=== PATIENT | male | born 1955 | race Caucasian/White ===

== ENCOUNTER 2016-08-13 12:05 | Emergency (ER) | payer OTHER ==
[2016-08-13 12:46] LABS: ABSOLUTE BASOPHILS # (AUTO) 0.2 10^3/uL (0.0-0.2); ABSOLUTE EOSINOPHILS # (AUTO) 0.5 10^3/uL (0.0-0.6); ABSOLUTE LYMPHOCYTES (AUTO) 2.4 10^3/uL (0.5-4.7); ABSOLUTE NEUT (AUTO) 9.1 10^3/uL (1.7-8.2); BASOPHILS % (AUTO) 1.3 % (0-2); EOSINOPHILS % (AUTO) 3.9 % (0-6); HEMATOCRIT 41.4 % (37.9-51.0); HEMOGLOBIN 13.6 g/dL (13.5-17.0); HGB HCT DIFFERENCE -0.6; LYMPHOCYTES % (AUTO) 18.5 % (13-45); MEAN CORPUSCULAR HEMOGLOBIN 28.3 pg (27.0-33.4); MEAN CORPUSCULAR HGB CONC 32.9 g/dL (32.0-36.0); MEAN CORPUSCULAR VOLUME 86 fl (80-97); MONOCYTES % (AUTO) 7.6 % (3-13); RED BLOOD COUNT 4.81 10^6/uL (4.35-5.55); RED CELL DISTRIBUTION WIDTH 14.8 % (11.5-14.0); SEGMENTED NEUTROPHILS % (AUTO) 68.7 % (42-78); WHITE BLOOD COUNT 13.2 10^3/uL (4.0-10.5)
[2016-08-13] MEDS ORDERED: IPRATROPIUM/ALBUTEROL 0.5-2.5 MG/3 ML AMPUL NEB ONE (13:03)
[2016-08-13 13:08] LABS: PROTHROMBIN TIME 23.5 SEC (11.4-15.4)
[2016-08-13 13:09] LABS: PARTIAL THROMBOPLASTIN TIME 60.8 SEC (23.5-35.8)
[2016-08-13 13:10] LABS: ANION GAP 11 (5-19); BLOOD UREA NITROGEN 12 mg/dL (7-20); CALCIUM 9.3 mg/dL (8.4-10.2); CARBON DIOXIDE 32 mmol/L (22-30); CHLORIDE 97 mmol/L (98-107); GLUCOSE 128 mg/dL (75-110); SODIUM 139.7 mmol/L (137-145)
--- NOTE | 2016-08-13 13:24 | EKG REPORT ---
SEVERITY:- BORDERLINE ECG - SINUS RHYTHM BORDERLINE RIGHT AXIS DEVIATION : Confirmed by: Bernardo Hardin MD 13-Aug-2016 13:22:57
[2016-08-13] MEDS ORDERED: DOXYCYCLINE HYCLATE 100 MG TABLET PO ONE (13:28)
[2016-08-13] MEDS ORDERED: PREDNISONE 20 MG TABLET PO ONE (13:29)
[2016-08-13 14:03] VITALS: BP 111/61
[2016-08-13] MEDS ORDERED: ALBUTEROL SULFATE HFA (90 MCG/PUFF) 8 GM MDI (1 MDI/ER DISP) IH ONE (14:14)
--- NOTE | 2016-08-13 14:21 | ER Document Report ---
ED General - General Chief Complaint: Breathing Difficulty Stated Complaint: DIFFICULTY BREATHING - HPI Patient complains to provider of: shortness of breath cough Notes: Patient was seen at the [place] clinic today and transferred via ambulance due to a pulse ox of 98%. Patient was seen the [place] clinic today for shortness of breath. Patient has a history of atrial fibrillation and is on Coumadin for anticoagulation. Patient states cough has been productive. Patient states similar to when patient was diagnosed with bronchitis in the past no recent travel no recent antibiotics. Patient denies a history of smoking. Patient denies chest pain abdominal pain fevers chills patient otherwise looks nontoxic upon his evaluation - Related Data Allergies/Adverse Reactions: No Known Allergies Allergy (Unverified 05/01/11 13:05) Past Medical History - Social History Smoking Status: Former Smoker Family History: Reviewed & Not Pertinent Renal/ Medical History: Denies: Hx Peritoneal Dialysis - Immunizations Hx Diphtheria, Pertussis, Tetanus Vaccination: - unknown Review of Systems - Review of Systems Constitutional: No symptoms reported EENT: No symptoms reported Cardiovascular: No symptoms reported Respiratory: Cough, Short of breath Gastrointestinal: No symptoms reported Genitourinary: No symptoms reported Male Genitourinary: No symptoms reported Musculoskeletal: No symptoms reported Skin: No symptoms reported Hematologic/Lymphatic: No symptoms reported Neurological/Psychological: No symptoms reported -: Yes All other systems reviewed and negative Physical Exam - Vital signs Vitals: Temp Pulse Resp BP Pulse Ox 98.4 F 75 16 111/61 92 08/13/16 12:09 08/13/16 12:09 08/13/16 12:09 08/13/16 12:09 08/13/16 12:09 Interpretation: Normal - General General appearance: Appears well, Alert - HEENT Head: Normocephalic, Atraumatic Eyes: Normal Pupils: PERRL - Respiratory Respiratory status: No respiratory distress Chest status: Nontender Breath sounds: Normal Chest palpation: Normal - Cardiovascular Rhythm: Regular Heart sounds: Normal auscultation Murmur: No - Abdominal Inspection: Normal Distension: No distension Bowel sounds: Normal Tenderness: Nontender Organomegaly: No organomegaly - Back Back: Normal, Nontender - Extremities General upper extremity: Normal inspection, Nontender, Normal color, Normal ROM , Normal temperature General lower extremity: Normal inspection, Nontender, Normal color, Normal ROM , Normal temperature, Normal weight bearing. No: Bhavya's sign - Neurological Neuro grossly intact: Yes Cognition: Normal Orientation: AAOx4 [place] Coma Scale Eye Opening: Spontaneous Verena Coma Scale Verbal: Oriented [place] Coma Scale Motor: Obeys Commands [place] Coma Scale Total: 15 Speech: Normal Motor strength normal: LUE, RUE, LLE, RLE Sensory: Normal - Psychological Associated symptoms: Normal affect, Normal mood - Skin Skin Temperature: Warm Skin Moisture: Dry Skin Color: Normal Course - Re-evaluation Re-evalutation: 08/13/16 20:34 After breathing treatment patient was ambulated no signs of hypoxia. Patient will be treated as bronchitis. Chest x-ray showed linear density. Not consistent at this time with pneumonia however patient will recover with doxycycline due to his history of smoking more likely underlying COPD. No signs of sepsis or concerning etiologies patient discharged home - Vital Signs Vital signs: Temp Pulse Resp BP Pulse Ox 97.5 F 77 22 H 132/62 H 95 08/13/16 13:54 08/13/16 13:54 08/13/16 13:54 08/13/16 13:54 08/13/16 14:01 - Laboratory Result Diagrams: 08/13/16 12:35 08/13/16 12:35 Laboratory results interpreted by me: 08/13/16 08/13/16 08/13/16 12:35 12:35 12:35 WBC 13.2 H RDW 14.8 H Absolute Neutrophils 9.1 H PT 23.5 H APTT 60.8 H Chloride 97 L Carbon Dioxide 32 H Glucose 128 H Discharge - Discharge Clinical Impression: Bronchitis Condition: Good Disposition: HOME, SELF-CARE Instructions: Bronchitis With Bronchospasm (Wheezing) ([facility]) Additional Instructions: Please take medications as prescribed. Return to the ER symptoms worsen. Follow-up with your primary care physician in the next week to 2 weeks. Please use the inhaler that we gave you here in ER 2 puffs every 4 hours while awake for the next 5 days then as needed Prescriptions: Doxycycline Hyclate 100 mg PO BID #14 capsule Prednisone [Deltasone 20 mg Tablet] 3 tab PO DAILY 5 Days Forms: Return to Work
== END 2016-08-13 14:31 | disposition home or self-care (01) ==
LOC: ER 12:05
DX: J40 Bronchitis, not specified as acute or chronic (principal); R06.02 Shortness of breath; Z87.891 Personal history of nicotine dependence; I48.91 Unspecified atrial fibrillation
CPT/HCPCS: 93005; 94640; 99285; 36415; 85025; 85610; 85730; 80048; 71020; 93010; J7512; J3490; J7620

== ENCOUNTER 2018-10-16 18:04 | Emergency (ER) | payer OTHER ==
--- NOTE | 2018-10-16 18:32 | ER Document Report ---
ED Medical Screen (RME) - General Chief Complaint: Leg Swelling Stated Complaint: LEG SWELLING Time Seen by Provider: 10/16/18 18:25 TRAVEL OUTSIDE OF THE [place] IN LAST 30 DAYS: No - HPI Notes: 10/16/18 18:30 Patient is a 63-year-old male with a history of oxygen dependent COPD, hypertension, pacemaker, A. fib (on Coumadin), type 2 diabetes who presents to the emergency department complaining of left lower extremity swelling and redness that has been developing over the past 4 days. His explosive man believes he may have cellulitis and wanted him evaluated. Denies POSADA, fever, neck pain, URI, CP, new onset SOB, Abd pain. I have treated and performed a rapid initial assessment of this patient. A comprehensive ED assessment and evaluation of the patient, analysis of test results and completion of medical decision making process will be conducted by additional ED providers. PHYSICAL EXAMINATION: GENERAL: Well-appearing, well-nourished and in no acute distress. A&Ox4. Answers questions appropriately. LUNGS: Breath sounds clear to auscultation bilaterally and equal. No wheezes rales or rhonchi. HEART: Regular rate and rhythm without murmurs, rubs, gallops. Extremities: Rt LE: 1+ pitting edema. Lt LE 2-3+ pitting edema with erythema and warmth associated. + tenderness left. NEUROLOGICAL: Normal speech, normal gait. PSYCH: Normal mood, normal affect. - Related Data Allergies/Adverse Reactions: No Known Allergies Allergy (Verified 10/16/18 18:05) Past Medical History Renal/ Medical History: Denies: Hx Peritoneal Dialysis - Immunizations Hx Diphtheria, Pertussis, Tetanus Vaccination: - unknown
[2018-10-16 19:19] LABS: ABSOLUTE BASOPHILS # (AUTO) 0.1 10^3/uL (0.0-0.2); ABSOLUTE EOSINOPHILS # (AUTO) 0.4 10^3/uL (0.0-0.6); ABSOLUTE LYMPHOCYTES (AUTO) 2.4 10^3/uL (0.5-4.7); ABSOLUTE MONOCYTES (AUTO) 0.8 10^3/uL (0.1-1.4); ABSOLUTE NEUT (AUTO) 9.3 10^3/uL (1.7-8.2); BASOPHILS % (AUTO) 0.6 % (0-2); EOSINOPHILS % (AUTO) 3.2 % (0-6); HEMOGLOBIN 12.6 g/dL (13.5-17.0); LYMPHOCYTES % (AUTO) 18.4 % (13-45); MEAN CORPUSCULAR HEMOGLOBIN 27.3 pg (27.0-33.4); MEAN CORPUSCULAR HGB CONC 32.3 g/dL (32.0-36.0); MEAN CORPUSCULAR VOLUME 84 fl (80-97); MONOCYTES % (AUTO) 5.9 % (3-13); PLATELET COUNT 417 10^3/uL (150-450); RED BLOOD COUNT 4.62 10^6/uL (4.35-5.55); RED CELL DISTRIBUTION WIDTH 15.9 % (11.5-14.0); SEGMENTED NEUTROPHILS % (AUTO) 71.9 % (42-78); TOTAL CELLS COUNTED % (AUTO) 100 %; WHITE BLOOD COUNT 12.9 10^3/uL (4.0-10.5)
[2018-10-16 19:24] LABS: INTERNATIONAL RATION (INR) 2.19; PROTHROMBIN TIME 25.4 SEC (11.4-15.4)
[2018-10-16 19:37] LABS: ALANINE AMINOTRANSFERASE 31 U/L (21-72); ALBUMIN 3.9 g/dL (3.5-5.0); ALKALINE PHOSPHATASE 105 U/L (38-126); ANION GAP 8 (5-19); ASPARTATE AMINO TRANSFERASE 21 U/L (17-59); BILIRUBIN,DIRECT 0.3 mg/dL (0.0-0.4); BILIRUBIN,TOTAL 0.4 mg/dL (0.2-1.3); BLOOD UREA NITROGEN 13 mg/dL (7-20); CALCIUM 9.5 mg/dL (8.4-10.2); CARBON DIOXIDE 38 mmol/L (22-30); CHLORIDE 95 mmol/L (98-107); GLUCOSE 150 mg/dL (75-110); POTASSIUM 3.6 mmol/L (3.6-5.0); SODIUM 140.9 mmol/L (137-145); TOTAL PROTEIN 7.2 g/dL (6.3-8.2)
[2018-10-16] MEDS ORDERED: CEPHALEXIN 500 MG CAPSULE PO ONE (20:48)
--- NOTE | 2018-10-16 20:50 | ER Document Report ---
ED General - General Chief Complaint: Leg Swelling Stated Complaint: LEG SWELLING Time Seen by Provider: 10/16/18 18:25 TRAVEL OUTSIDE OF THE [place] IN LAST 30 DAYS: No - HPI Notes: Patient presents emergency department for evaluation of left lower extremity redness and swelling. Is been going on for the last 4 days. He states he has had similar in the past, was placed on antibiotics and it improved. He denies any fevers or chills. No nausea or vomiting. He did have upper respiratory infection symptoms last week, as well as some loose stools. These have all improved. He denies any chest pain or difficulty breathing. He is able to take his medications without difficulty. His telehealth coordinator send him here for further evaluation. - Related Data Allergies/Adverse Reactions: No Known Allergies Allergy (Verified 10/16/18 18:05) Past Medical History - General Information source: Patient, Relative - Social History Smoking Status: Never Smoker Chew tobacco use (# tins/day): No Frequency of alcohol use: None Drug Abuse: Prescription drugs Family History: Reviewed & Not Pertinent Patient has suicidal ideation: No Patient has homicidal ideation: No - Past Medical History Cardiac Medical History: Reports: Hx Hypertension Pulmonary Medical History: Reports: Hx COPD Endocrine Medical History: Reports: Hx Diabetes Mellitus Type 2 Renal/ Medical History: Denies: Hx Peritoneal Dialysis Past Surgical History: Reports: Hx Cardiac Surgery - x2 ablations - Immunizations Hx Diphtheria, Pertussis, Tetanus Vaccination: - unknown Review of Systems - Review of Systems Constitutional: No symptoms reported EENT: No symptoms reported Cardiovascular: No symptoms reported Respiratory: No symptoms reported Gastrointestinal: No symptoms reported Musculoskeletal: No symptoms reported Skin: See HPI Neurological/Psychological: No symptoms reported Physical Exam - Vital signs Notes: Temperature 98.7 orally, pulse 87, blood pressure 140/60, respirations 19 and unlabored, O2 sats 93% on room air - Notes Notes: Vital signs reviewed, please refer to chart. Patient is normocephalic, atraumatic. Pupils equal round, reactive to light. Neck is supple without meningismus. Heart is regular rate and rhythm. Lungs are clear to auscultation bilaterally. Abdomen is soft, nontender, normoactive bowel sounds throughout. Extremities without cyanosis or clubbing. Diminished to the left lower extremity is 3+ pitting edema with marked erythema in a sock distribution. Dors rom pedis and posterior tibial pulses are 2+. There is mild, healing abrasion noted to the anterior barry. There is associated calor. No posterior calf tenderness. Peripheral pulses are equal. Skin is warm and dry. Patient is awake, alert, neurological exam is nonfocal. Course - Re-evaluation Re-evalutation: 10/16/18 20:46 Patient presents emergency department for evaluation. He had initial laboratory investigations and imaging as ordered through triage. His venous Doppler was unofficially and preliminarily read as negative. His laboratory investigations did reveal a mildly elevated white blood cell count, but otherwise his vital signs revealed no significant abnormalities beyond mild hypertension. At this point I do believe is reasonable for the patient to try outpatient oral antibiotics. He and his agree this is acceptable as well. We will treat with Keflex, and and attempt to not alter his INR. He is amenable to this plan. He is to return to the emergency department with worsening or new concerning symptoms of any sort. - Laboratory Result Diagrams: 10/16/18 18:58 10/16/18 18:58 Laboratory results interpreted by me: 10/16/18 10/16/18 10/16/18 18:58 18:58 18:58 WBC 12.9 H Hgb 12.6 L RDW 15.9 H Absolute Neutrophils 9.3 H PT 25.4 H Chloride 95 L Carbon Dioxide 38 H Glucose 150 H Discharge - Discharge Clinical Impression: Cellulitis of left lower extremity Condition: Stable Disposition: HOME, SELF-CARE Instructions: Cellulitis ([facility]) Additional Instructions: Take antibiotic as prescribed until gone. Follow-up with your doctor next week. If you develop increased redness, fever, vomiting, or any other new or concerning symptoms, return immediately to the emergency department for reevaluation.
[2018-10-16 21:15] VITALS: BP 143/65
--- NOTE | 2018-10-17 10:51 | XCELERA REPORT ---
[address] [address] Lower Extremity Venous Evaluation Procedure: Color flow and duplex imaging of the veins of the left lower extremity as well as the right Common Femoral vein. Right Sided Venous Evaluation The right common femoral vein is fully compressible. Spontaneous and phasic flow is present in the right common femoral vein. Left Sided Venous Evaluation Unable to visualize distal Femoral. Normal vessel filling wall to wall, compression and augmentation as well as Colour flow down to the infrageniculate veins. Interpretation Summary No duplex evidence of DVT or obstruction in the left lower extremity nor in the right Common Femoral vein. Limitations as noted. Name: OG CARMONA Age: 63 yrs Gender: Male : 1955 Patient Status: Preadmit Patient Location: ER Study Date: 10/16/2018 07:34 PM Reason For Study: LLE edema/swelling Ordering Physician: MADONNA SWEENEY Performed By: Deloris Echevarria : MADONNA SWEENEY > Mikie Alonzo
== END 2018-10-16 21:14 | disposition home or self-care (01) ==
LOC: ER 18:04
DX: L03.116 Cellulitis of left lower limb (principal); E11.9 Type 2 diabetes mellitus without complications; M79.89 Other specified soft tissue disorders; I10 Essential (primary) hypertension; J44.9 Chronic obstructive pulmonary disease, unspecified
CPT/HCPCS: 36415; 80053; 85025; 85610; 87040; 93971; 99284

== ENCOUNTER → 2019-08-31 | Outpatient (CLI) | payer OTHER ==
--- NOTE | 2019-08-31 13:22 | RADIOLOGY REPORT (SQ) ---
EXAM DESCRIPTION: CT LUNG CANCER SCREENING COMPLETED DATE/TIME: 08/31/2019 9:24 am REASON FOR STUDY: Z12.2 ENCNTR SCREEN FOR MALIGNANT NEOPLASM OF RESPIRATORY ORGANS Z12.2 ENCNTR SCR EEN FOR MALIGNANT NEOPLASM OF RESPIRATORY OR Has the patient had a Chest CT scan within the past year? Y Was the patient offered tobacco cessation counseling? Y Was the patient engaged in shared decision making for this test? Y Does the patient have signs or symptoms of Lung Cancer? N Is the patient a smoker? N How many pack years? 42 How many years since quitting smoking? 7 Patients age: 64 COMPARISON: None. TECHNIQUE: Low Dose CT scan performed of the chest without intravenous contrast for purposes of scre ening for lung cancer. Images reviewed with lung, soft tissue and bone windows. Reconstructed coron al and sagittal MPR images reviewed. All images stored on PACS. All CT scanners at this facility use dose modulation, iterative reconstruction, and/or weight based d osing when appropriate to reduce radiation dose to as low as reasonably achievable (ALARA). [facility]: Dose Right [facility]: CareDose [facility]: Dose Right [facility]: Teradose 4D [facility]: [employer] RADIATION DOSE: CT Rad equipment meets quality standard of care and radiation dose reduction techniq ues were employed. CTDIvol: NaN mGy. DLP: 0 mGy-cm. mGy. . LIMITATIONS: None FINDINGS: LUNGS AND PLEURA: No masses or nodules. Calcified pleural plaques. No pneumothorax. No scarring or interstitial changes. HILAR AND MEDIASTINAL STRUCTURES: No identified masses. No abnormal nodes. HEART AND VASCULAR STRUCTURES: No aortic aneurysm. No pericardial effusion. Pacemaker. CORONARY ARTERY CALCIFICATIONS: No significant calcifications. UPPER ABDOMEN, THYROID, BONES, OTHER SOFT TISSUES: No significant findings. IMPRESSION: NO SIGNIFICANT FINDING IN THE LUNGS ON NON-CONTRASTED CHEST CT. NO OTHER CLINICALLY SIGNIFICANT/POTENTIALLY CLINICALLY SIGNIFICANT FINDINGS LUNGRADS: LUNGRADS: 1 NEGATIVE. NO NODULES, OR DEFINITELY BENIGN NODULES MODIFIER: NONE RECOMMENDATION: Continue annual screening with LDCT in 12 months. COMMENT: CRITERIA: No lung nodules. Nodules with specific calcifications: Complete, central, popcorn, concentric rings and fat containin g nodules. TECHNICAL DOCUMENTATION: JOB ID: [id number] Quality ID # [id number]: Final reports with documentation of one or more dose reduction techniques (e.g., Au tomated exposure control, adjustment of the mA and/or kV according to patient size, use of iterative reconstruction technique) 2010 [facility] [place] Radiology Reading location - IP/workstation name: [email or web address]
== END ==
LOC: RAD 08:59
PROVIDERS: ATTEND Family Medicine
DX: F17.210 Nicotine dependence, cigarettes, uncomplicated (principal)
CPT/HCPCS: G0297

== ENCOUNTER → 2020-07-17 | Outpatient (CLI) | payer OTHER ==
--- NOTE | 2020-07-17 15:58 | RADIOLOGY REPORT (SQ) ---
EXAM DESCRIPTION: CT CHEST WITHOUT IMAGES COMPLETED DATE/TIME: 07/17/2020 9:06 am REASON FOR STUDY: (J44.9)CHRONIC OBSTRUCTIVE PULMONARY DISEASE, UNSPECIFIED J44.9 CHRONIC OBSTRUCTI VE PULMONARY DISEASE, UNSPECIFIED COMPARISON: None. TECHNIQUE: Prone and supine high resolution technique imaging performed through the lungs windowed f or lung windows. All CT scanners at this facility use dose modulation, iterative reconstruction, and/or weight based d osing when appropriate to reduce radiation dose to as low as reasonably achievable (ALARA). [facility]: Dose Right [facility]: CareDose [facility]: Dose Right [facility]: Teradose 4D [facility]: [employer] RADIATION DOSE: CT Rad equipment meets quality standard of care and radiation dose reduction techniq ues were employed. CTDIvol: 2.2 mGy. DLP: 142 mGy-cm. mGy. LIMITATIONS: None. FINDINGS: LUNGS AND PLEURA: Mild anterior calcified pleural plaque on the left. Mild scarring in th e right middle lobe. No ground-glass opacities. LIMITED MEDIASTINUM: No suggestion of adenopathy or mass. BONES: No significant findings. OTHER: No other significant finding. IMPRESSION: Minimal calcified pleural plaque. No interstitial infiltrates allowing for scar in the right middle lobe. TECHNICAL DOCUMENTATION: JOB ID: [id number] Quality ID # [id number]: Final reports with documentation of one or more dose reduction techniques (e.g., Au tomated exposure control, adjustment of the mA and/or kV according to patient size, use of iterative reconstruction technique) 2010 [employer]- All Rights Reserved Reading location - IP/workstation name: [email or web address]
== END ==
LOC: RAD 08:44
PROVIDERS: ATTEND Internal Medicine Pulmonary Disease
DX: J44.9 Chronic obstructive pulmonary disease, unspecified (principal); J84.10 Pulmonary fibrosis, unspecified
CPT/HCPCS: 71250